=== PATIENT | female | born 1950 | race Caucasian/White ===

== ENCOUNTER 2019-08-15 16:36 | Outpatient (CLI) | payer MEDICARE ==
--- NOTE | 2019-08-15 17:06 | RAD ---
EXAM: CHEST TWO VIEWS: 08/15/19 HISTORY: Unexplained weight loss. FINDINGS: Minimal hyperinflation and chronic lung changes. Heart size is within normal limits. No confluent pn eumonia, overt edema, or pleural effusion. IMPRESSION: No significant acute intrathoracic disease. Bilateral hyperinflation. 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 POS: [facility]
[2019-08-15 17:22] LABS: #Basophils 0.1 thou/uL (0.0-0.2); #Lymphocytes 1.7 thou/uL (1.20-3.40); #Monocytes 0.5 thou/uL (0.11-0.59); #Neutrophils 7.3 thou/uL (1.40-6.50); %Eosinophils 0.5 % (0.0-10.0); %Lymphocytes 17.8 % (21.0-51.0); %Monocytes 5.1 % (0.0-10.0); %Neutrophils 75.6 % (42.0-75.0); Mean Corpuscular HGB CONC 32.1 g/dL (32.0-36.0); Mean Corpuscular Hemoglobin 30.8 pg (27.0-31.0); Mean Platelet Volume 7.6 fL (7.4-10.4); Platelet Count 249 thou/uL (130-400); RBC Distribution Width 12.6 % (11.5-14.5); Red Blood Cell (RBC) Count 3.89 mill/uL (4.20-5.40); White Blood Cell (WBC) Count 9.6 thou/uL (4.8-10.8)
[2019-08-15 17:27] LABS: ALT (SGPT) 14 U/L (8-55); AST (SGOT) 16 U/L (5-34); Albumin 4.6 g/dL (3.4-4.8); Alkaline Phosphatase 48 U/L (40-110); Anion Gap 13 mmol/L (10-20); BUN (Urea Nitrogen) 18 mg/dL (9.8-20.1); Bilirubin, Total 1.2 mg/dL (0.2-1.2); Calc. Creatinine Clearance 0 mL/min (70-130); Carbon Dioxide 26 mmol/L (23-31); Chloride 108 mmol/L (98-107); Estimated GFR-MDRD 74; Globulin 2.5 g/dL (2.4-3.5); Glucose 107 mg/dL (80-115); Potassium 3.7 mmol/L (3.5-5.1); Protein, Total 7.1 g/dL (6.0-8.3); Sodium 143 mmol/L (136-145)
[2019-08-15 17:46] LABS: Thyroid Stimulating Hormone 0.6147 uIU/mL (0.35-4.94)
[2019-08-15 21:30] LABS: Hemoglobin A1c 5.6 % (4.0-6.0)
[2019-08-16 02:04] LABS: HIV (1/2) Antibody/Antigen Non-Reactive (NonReactive); HIV 1/2 INDEX 0.13 S/CO (<1.00)
== END 2019-08-15 16:37 | disposition home or self-care (01) ==
LOC: MADRAD 16:36
PROVIDERS: ATTEND Family Medicine
DX: R63.4 Abnormal weight loss (principal); I70.0 Atherosclerosis of aorta; I77.819 Aortic ectasia, unspecified site; Z79.899 Other long term (current) drug therapy
CPT/HCPCS: 36415; 71046; 80053; 83036; 84443; 85025; 87389